=== PATIENT | male | born 2005 | race Caucasian/White ===

== ENCOUNTER → 2023-10-11 | Outpatient (CLI) | payer BC ==
--- NOTE | 2023-10-12 11:27 | CA ---
Transthoracic Echo Report Name: Murali Aldrich Age: 18 Gender: M : 2005 Exam Date: 10/11/2023 15:12 Exam Location: [facility] Ht (in): 72 Wt (lb): 150 Ordering Physician: Morteza Lundberg DO Attending/Referring Phys: Sharron Henson PAC [employer] Hand Camila Acevedo RDCS Procedure CPT: Indications: R011 CARDIAC MURMUR, UNSPECIFIED Cardiac Hx: Technical Quality: Fair Contrast 1: Total Dose (mL): Contrast 2: Total Dose (mL): MEASUREMENTS (Male / Female) Normal Values 2D ECHO LV Diastolic Diameter PLAX 4.4 cm 4.2 - 5.9 / 3.9 - 5.3 cm LV Systolic Diameter PLAX 2.9 cm IVS Diastolic Thickness 0.9 cm 0.6 - 1.0 / 0.6 - 0.9 cm LVPW Diastolic Thickness 1.0 cm 0.6 - 1.0 / 0.6 - 0.9 cm LV Relative Wall Thickness 0.4 RV Internal Dim ED PLAX 3.7 cm LA Volume 20.0 cm??? 18 - 58 / 22 - 52 cm??? LA Volume Index 10.8 cm???/m??? 16 - 28 cm???/m??? DOPPLER AV Peak Velocity 90.9 cm/s AV Peak Gradient 3.3 mmHg AV Mean Velocity 48.2 cm/s AV Mean Gradient 1.2 mmHg AV Velocity Time Integral 13.6 cm MV Area PHT 4.0 cm??? Mitral E Point Velocity 92.3 cm/s Mitral A Point Velocity 44.0 cm/s Mitral E to A Ratio 2.1 MV Deceleration Time 187.6 ms MV E' Velocity 11.8 cm/s Mitral E to MV E' Ratio 7.8 TR Peak Velocity 207.6 cm/s TR Peak Gradient 17.2 mmHg Right Ventricular Systolic Press 21.5 mmHg FINDINGS Left Ventricle Normal Left ventricular size, wall thickness, systolic function with no obvious regional wall motion abnormalities. Normal Left ventricular diastolic filling pattern. Left ventricular ejection fraction is estimated at 55-60 %. Right Ventricle Normal right ventricular size and function. Right ventricular systolic pressure within normal limits. Right Atrium Normal right atrial size. Left Atrium Normal left atrial size. Mitral Valve Structurally normal mitral valve. No mitral stenosis, regurgitation or prolapse. Aortic Valve Trileaflet aortic valve. No aortic valve stenosis or regurgitation. Tricuspid Valve Structurally normal tricuspid valve. Trace to mild tricuspid regurgitation. Pulmonic Valve Structurally normal pulmonic valve. Pericardium No pericardial effusion. Aorta Normal size aortic root and proximal ascending aorta. CONCLUSIONS Left ventricular ejection fraction 55-60% No increased left ventricular wall thickness No mitral regurgitation Trace to mild tricuspid regurgitation No pericardial effusion Previewed by: Dr. Kana Still DO (Electronically Signed) Final Date: 12 October 2023 11:26
== END | disposition home or self-care (01) ==
LOC: RADECHMAIN 14:53
PROVIDERS: ATTEND Family Medicine
DX: I36.1 Nonrheumatic tricuspid (valve) insufficiency (principal); R01.1 Cardiac murmur, unspecified
CPT/HCPCS: 93306